=== PATIENT | male | born 1985 | race American Indian/Alaskan Native ===

== ENCOUNTER 2019-10-09 02:25 | Emergency (ER) | payer SELFPAY ==
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
[2019-10-09 03:32] LABS: BUN/Creatinine Ratio 11; Blood Urea Nitrogen 12 mg/dL (9-20); Calcium 8.6 mg/dL (8.4-10.2); Hemolysis Index 19
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
[2019-10-09] MEDS ORDERED: KETOROLAC 30 MG/1 ML INJ IV ONE (04:36)
[2019-10-09 09:12] VITALS: BP 166/93
== END 2019-10-09 09:16 | disposition home or self-care (01) ==
LOC: ED 02:25
DX: F10.120 Alcohol abuse with intoxication, uncomplicated (principal); M54.2 Cervicalgia; M54.5 Low back pain; V89.2XXA Person injured in unspecified motor-vehicle accident, traffic, initial encounter; Y93.89 Activity, other specified; Y92.488 Other paved roadways as the place of occurrence of the external cause; Y99.8 Other external cause status
CPT/HCPCS: 36415; 70450; 72125; 72170; 80048; 80320; 83735; 96374; G0480